=== PATIENT | female | born 1995 | race Caucasian/White ===

== ENCOUNTER 2017-07-11 15:11 | Outpatient (CLI) | payer BC, OTHER | END 2017-07-11 15:30 | LOC: LAB 15:11 | PROVIDERS: ATTEND Physician Assistant | DX: Z20.2 Contact with and (suspected) exposure to infections with a predominantly sexual mode of transmission (principal) | CPT/HCPCS: 36415; 86694; 86703; 86803 ==

== ENCOUNTER 2017-09-05 16:01 | Outpatient (CLI) | payer BC, OTHER ==
--- NOTE | 2017-09-05 18:42 | Diagnostic Imaging Report ---
ИРИНА VILLASENOR [facility] [address] [facility] [address] [place] [address]. [id number] Report Submission Date: Sep 05, 2017 4:23:07 PM CDT Patient Study Name: WILLIE AMATO Date: Sep 05, 2017 4:04:21 PM CDT Modality Type: DX Gender: F Description: CHEST : 97 Institution: [facility] Physician: ИРИНА VILLASENOR Chest, PA and lateral HISTORY Chest pain. FINDINGS The heart, lungs, pleura, mediastinum and bony thorax are normal. IMPRESSION Normal. Electronically signed on Sep 05, 2017 4:23:07 PM CDT by: Perfecto SHOEMAKER
== END 2017-09-05 18:15 ==
LOC: RAD 16:01
PROVIDERS: ATTEND Physician Assistant
DX: R06.02 Shortness of breath (principal); R07.9 Chest pain, unspecified
CPT/HCPCS: 71046

== ENCOUNTER 2018-03-22 09:25 | Emergency (ER) | payer BC, OTHER ==
--- NOTE | 2018-03-22 11:14 | ED Physician Documentation ---
General Adult - HISTORIAN Historian: patient - HPI Stated Complaint: Coughed up blood Chief Complaint: General Adult Onset: other (3 weeks) Timing: still present Severity: moderate Further Comments: yes (Pt is a 22 yo female with a cough x 3 weeks. Pt has had some blood streaked sputum production. Other family members also have coughs. Pt had been on control pills until 4 months ago. She is an everyday smoker. Pt has had sharp, stabbing chest pain with deep breath. Pt c/o feeling very tired even after sleeping adequately.) - ROS CONST: other (fatigue) EYES/ENT: none CVS/RESP: shortness of breath, cough GI/: none MS/SKIN/LYMPH: none - PAST HX Past History: none Other History: none Allergies/Adverse Reactions: Allergies Allergy/AdvReac Type Severity Reaction Status Date / Time amoxicillin Allergy Unverified 03/05/17 13:04 - SOCIAL HX Smoking History: cigarettes - FAMILY HX Family History: No - VITAL SIGNS Vital Signs: Vital Signs Temp Pulse Resp BP Pulse Ox 98.1 F 88 20 148/92 99 03/22/18 09:40 03/22/18 09:40 03/22/18 09:40 03/22/18 09:40 03/22/18 09:40 - REVIEWED ASSESSMENTS Nursing Assessment Reviewed: Yes Vitals Reviewed: Yes Progress - Progress Progress: CXR: NO ACTIVE DISEASE. Rx Z-chandni (Azithromycin). Use as directed. Rx Nabumatone 500 mg. Take one every 12 hours for 7 days. Take with food. Rx Robitussin AC (with codeine). Take 10 ml by mouth every 4 to 6 hours as needed for cough. ED Results Lab/Radiology - Orders Orders: ED Orders Category Date Time Status CHEST 2VIEW [RAD] Stat Exams 03/22/18 Taken CBC/PLATELET/DIFF Routine Lab 03/22/18 Ordered CMP [CMP] Routine Lab 03/22/18 Ordered D DIMER Stat Lab 03/22/18 Ordered HCG [URINE HCG] Stat Lab 03/22/18 Uncollected MONOTEST Stat Lab 03/22/18 Ordered UA [URINALYSIS] Routine Lab 03/22/18 Ordered General Adult Physical Exam - PHYSICAL EXAM GENERAL APPEARANCE: mild distress (anxious) EENT: eye inspection normal, ENT inspection normal, pharynx normal NECK: normal inspection, supple RESPIRATORY: no resp distress, breath sounds normal CVS: reg rate & rhythm, heart sounds normal BACK: normal inspection, no CVA tenderness SKIN: warm/dry, normal color EXTREMITIES: non-tender, normal range of motion, no evidence of injury NEURO: oriented X3, motor nml, sensation nml Discharge Clincal Impression: Persistent cough, Pleurisy Referrals: Chary Prieto MD [Primary Care Provider] - Condition: Good Disposition: 01 HOME, SELF-CARE Decision to Admit: NO Decision Time: 12:59
[2018-03-22 12:18] LABS: BASOPHILS % 0.3 (0.0-1.5); EOSINOPHILS % 0.9 % (0.0-6.8); MEAN CORPUSCULAR HEMOGLOBIN 27.9 pg (28.0-34.0); MONOCYTES % 2.9 % (0.0-11.0); NEUTROPHILS # 6.2 # k/uL (1.4-7.7)
[2018-03-22 12:48] LABS: eGFR (Non-African) > 60
[2018-03-22 13:25] VITALS: BP 136/88
[2018-03-22 17:09] LABS: APPEARANCE,URINE CLOUDY (CLEAR); COLOR,URINE YELLOW (YELLOW); OCCULT BLOOD,URINE 1+ (NEGATIVE); PH URINE 5.5 (5.0 - 8.0); UROBILINOGEN URINE 0.2 Eu (0.2-1.0)
--- NOTE | 2018-03-23 03:30 | Diagnostic Imaging Report ---
GANESH SOTOMAYOR [facility] [address] [facility] [address] [address] Report Submission Date: Mar 22, 2018 10:58:32 AM REPRODUCTIVE ENDOCRINOLOGIST Patient Study Name: WILLIE AMATO Date: Mar 22, 2018 10:23:14 AM REPRODUCTIVE ENDOCRINOLOGIST Modality Type: DX Gender: F Description: CHEST 2VIEW : 97 Institution: [facility] Physician: GANESH SOTOMAYOR PA AND LATERAL CHEST HISTORY: Cough COMPARISON: September 05, 2017 PA and Lateral Chest dated March 22, 2018 demonstrates a normal cardiomediastinal silhouette. Pulmonary vascularity is normal. There is an unchanged calcified granuloma at the right costophrenic angle. Otherwise, the lungs are clear. IMPRESSION: NO ACTIVE DISEASE. Electronically signed on Mar 22, 2018 10:58:32 AM REPRODUCTIVE ENDOCRINOLOGIST by: Yodit SHOEMAKER
== END 2018-03-22 13:20 | disposition home or self-care (01) ==
LOC: ED 09:25
DX: R09.1 Pleurisy (principal); R05 Cough; Z72.0 Tobacco use
CPT/HCPCS: 36415; 71046; 80053; 81002; 81025; 85025; 85379; 86308; 99283

== ENCOUNTER 2018-06-03 08:00 | Outpatient (CLI) | payer BC | END 2018-06-03 08:03 | LOC: LABRHC 08:00 | PROVIDERS: ATTEND Family Medicine | DX: Z20.2 Contact with and (suspected) exposure to infections with a predominantly sexual mode of transmission (principal); R10.9 Unspecified abdominal pain | CPT/HCPCS: 87491; 87591 ==

== ENCOUNTER 2018-06-03 11:42 | Outpatient (CLI) | payer BC ==
[2018-06-03 12:48] LABS: eGFR (Non-African) > 60
== END 2018-06-03 11:44 ==
LOC: LAB 11:42
PROVIDERS: ATTEND Family Medicine
DX: Z20.2 Contact with and (suspected) exposure to infections with a predominantly sexual mode of transmission (principal)
CPT/HCPCS: 36415; 80053; 86703; 86780; 86803

== ENCOUNTER 2018-09-11 08:50 | Outpatient (CLI) | payer BC ==
--- NOTE | 2018-09-11 09:41 | Diagnostic Imaging Report ---
NGOC PAL [facility] [address] [facility] [address] [place] [address]. [id number] Report Submission Date: Sep 11, 2018 9:31:32 AM CDT Patient Study Name: WILLIE AMATO Date: Sep 11, 2018 9:04:30 AM CDT Modality Type: CT\SR Gender: F Description: CT BRAIN W/O CONTRAST : 97 Institution: [facility] Physician: NGOC PAL Exam: CT brain without contrast. History: Headache. Axial images through the brain are submitted along with sagittal and coronal reformatted images. The brainstem and cerebellum are of normal attenuation. In the supratentorial regions, no acute hemorrhage or mass effect is seen. The lateral ventricles and surrounding sulci are normal. No extra-axial fluid collections are identified. No bony abnormalities are identified Impression: No acute intracranial process. Electronically signed on Sep 11, 2018 9:31:32 AM CDT by: Rad SHOEMAKER
== END 2018-09-11 08:52 ==
LOC: RAD 08:50
PROVIDERS: ATTEND Nurse Practitioner Family
DX: R51 Headache (principal)
CPT/HCPCS: 70450